=== PATIENT | male | born 1980 | race American Indian/Alaskan Native ===

== ENCOUNTER 2018-11-14 12:48 | Outpatient (CLI) | payer OTHER ==
[2018-11-14 13:20] LABS: Hematocrit 33.7 % (35.5-45.6); Mean Corpuscular HGB Conc 33 % (32-34); Mean Corpuscular Volume 86 fl (84-94); Platelet Count 154 K/mm3 (140-440); Red Blood Count 3.91 M/mm3 (3.65-5.03); Red Cell Distribution Width 16.3 % (13.2-15.2)
[2018-11-14 13:35] LABS: Bilirubin,Urine NEG (Negative); Blood,Urine SM (Negative); Color,Urine Yellow (Yellow); Urobilinogen,Urine < 2.0 mg/dL (<2.0)
[2018-11-14 13:52] LABS: Creatinine,Urine 216.1 mg/dL (0.1-20.0); Protein/Creatinine Ratio,Urine 0.58
[2018-11-14 14:24] LABS: Calcium 8.8 mg/dL (8.4-10.2)
== END 2018-11-14 12:49 | disposition home or self-care (01) ==
LOC: LAB 12:48
PROVIDERS: ATTEND Internal Medicine Nephrology
DX: I12.9 Hypertensive chronic kidney disease with stage 1 through stage 4 chronic kidney disease, or unspecified chronic kidney disease (principal); N18.1 Chronic kidney disease, stage 1; N25.81 Secondary hyperparathyroidism of renal origin
CPT/HCPCS: 36415; 80048; 81001; 82306; 82570; 83970; 84100; 84156; 85027

== ENCOUNTER 2019-03-09 15:17 | Outpatient (CLI) | payer OTHER ==
[2019-03-09 15:55] LABS: Hematocrit 34.4 % (35.5-45.6); Hemoglobin 11.6 gm/dl (11.8-15.2); Mean Corpuscular HGB Conc 34 % (32-34); Mean Corpuscular Volume 87 fl (84-94); Platelet Count 192 K/mm3 (140-440); Red Blood Count 3.93 M/mm3 (3.65-5.03); Red Cell Distribution Width 16.5 % (13.2-15.2)
[2019-03-09 15:55] LABS: Bilirubin,Urine NEG (Negative); Blood,Urine SM (Negative); Color,Urine Yellow (Yellow); Mucus,Urine FEW /HPF; Urobilinogen,Urine < 2.0 mg/dL (<2.0); WBC,Urine < 1.0 /HPF (0.0-6.0)
[2019-03-09 16:08] LABS: Calcium 9.1 mg/dL (8.4-10.2)
[2019-03-09 16:34] LABS: Creatinine,Urine 194.2 mg/dL (0.1-20.0); Protein/Creatinine Ratio,Urine 0.14
== END 2019-03-09 15:18 | disposition home or self-care (01) ==
LOC: LAB 15:17
PROVIDERS: ATTEND Internal Medicine Nephrology
DX: N25.81 Secondary hyperparathyroidism of renal origin (principal); N18.3 Chronic kidney disease, stage 3 (moderate)
CPT/HCPCS: 36415; 80048; 81001; 82570; 83970; 84100; 84156; 85027

== ENCOUNTER 2019-04-21 14:59 | Outpatient (CLI) | payer OTHER ==
[2019-04-21 15:25] LABS: Basophils % (Auto) 0.9 % (0.0-1.8); Eosinophils # (Auto) 0.1 K/mm3 (0.0-0.4); Hematocrit 34.1 % (35.5-45.6); Hemoglobin 11.3 gm/dl (11.8-15.2); Lymphocytes # (Auto) 1.1 K/mm3 (1.2-5.4); Mean Corpuscular HGB Conc 33 % (32-34); Mean Corpuscular Volume 90 fl (84-94); Monocytes # (Auto) 0.5 K/mm3 (0.0-0.8); Monocytes % (Auto) 12.6 % (0.0-7.3); Platelet Count 194 K/mm3 (140-440); Red Cell Distribution Width 16.6 % (13.2-15.2)
[2019-04-21 15:34] LABS: Creatinine,Urine 124.9 mg/dL (0.1-20.0); Protein/Creatinine Ratio,Urine 0.31
[2019-04-21 15:45] LABS: Calcium 9.1 mg/dL (8.4-10.2)
[2019-04-21 16:02] LABS: Bilirubin,Urine NEG (Negative); Blood,Urine SM (Negative); Color,Urine Yellow (Yellow); Urobilinogen,Urine < 2.0 mg/dL (<2.0)
== END 2019-04-21 15:00 | disposition home or self-care (01) ==
LOC: LAB 14:59
PROVIDERS: ATTEND Internal Medicine Nephrology
DX: N18.3 Chronic kidney disease, stage 3 (moderate) (principal); N25.81 Secondary hyperparathyroidism of renal origin
CPT/HCPCS: 36415; 80048; 81001; 82570; 83970; 84100; 84156; 85025

== ENCOUNTER 2019-07-18 16:31 | Outpatient (CLI) | payer OTHER ==
[2019-07-18 17:11] LABS: Bilirubin,Urine NEG (Negative); Blood,Urine MOD (Negative); Color,Urine Straw (Yellow); Protein,Urine <15 mg/dL mg/dL (Negative); Urobilinogen,Urine < 2.0 mg/dL (<2.0)
[2019-07-18 17:22] LABS: Creatinine,Urine 149.9 mg/dL (0.1-20.0); Protein/Creatinine Ratio,Urine 0.13
[2019-07-18 17:30] LABS: Hematocrit 33.7 % (35.5-45.6); Hemoglobin 11.2 gm/dl (11.8-15.2); Mean Corpuscular HGB Conc 33 % (32-34); Mean Corpuscular Volume 89 fl (84-94); Platelet Count 198 K/mm3 (140-440); Red Blood Count 3.77 M/mm3 (3.65-5.03); Red Cell Distribution Width 15.4 % (13.2-15.2)
[2019-07-18 17:33] LABS: Albumin 4.7 g/dL (3.9-5); Calcium 9.1 mg/dL (8.4-10.2)
== END 2019-07-18 16:32 | disposition home or self-care (01) ==
LOC: LAB 16:31
PROVIDERS: ATTEND Internal Medicine Nephrology
DX: N18.4 Chronic kidney disease, stage 4 (severe) (principal)
CPT/HCPCS: 36415; 80048; 81001; 82040; 82043; 82570; 83520; 84100; 84156; 85027; 86021; 86038; 86160

== ENCOUNTER 2019-08-17 12:57 | Outpatient (CLI) | payer OTHER ==
[2019-08-17 13:20] LABS: Hematocrit 34.4 % (35.5-45.6); Hemoglobin 11.3 gm/dl (11.8-15.2); Mean Corpuscular HGB Conc 33 % (32-34); Mean Corpuscular Volume 90 fl (84-94); Platelet Count 196 K/mm3 (140-440); Red Blood Count 3.83 M/mm3 (3.65-5.03); Red Cell Distribution Width 15.7 % (13.2-15.2)
[2019-08-17 13:40] LABS: Protein/Creatinine Ratio,Urine 0.43
[2019-08-17 13:48] LABS: Albumin 4.6 g/dL (3.9-5); Calcium 8.9 mg/dL (8.4-10.2)
[2019-08-17 13:51] LABS: Bacteria,Urine 4+ /HPF (Negative); Bilirubin,Urine NEG (Negative); Blood,Urine SM (Negative); Color,Urine Yellow (Yellow); Mucus,Urine 2+ /HPF; Sperm,Urine 3+ /HPF (NP); Urobilinogen,Urine < 2.0 mg/dL (<2.0)
[2019-08-22 12:54] LABS: ANA Screen, IFA Positive (Negative)
[2019-08-23 19:44] LABS: Myeloperoxidase Antibody <1.0 AI (<1.0)
== END 2019-08-17 12:58 | disposition home or self-care (01) ==
LOC: LAB 12:57
PROVIDERS: ATTEND Internal Medicine Nephrology
DX: N18.4 Chronic kidney disease, stage 4 (severe) (principal)
CPT/HCPCS: 36415; 80048; 81001; 82040; 82043; 82570; 83520; 84100; 84156; 85027; 86021; 86038; 86160; 87086

== ENCOUNTER 2019-10-09 16:30 | Outpatient (CLI) | payer OTHER ==
[2019-10-09 17:01] LABS: Basophils % (Auto) 0.4 % (0.0-1.8); Eosinophils # (Auto) 0.1 K/mm3 (0.0-0.4); Eosinophils % (Auto) 2.7 % (0.0-4.3); Hematocrit 33.2 % (35.5-45.6); Lymphocytes # (Auto) 1.3 K/mm3 (1.2-5.4); Lymphocytes % (Auto) 29.6 % (13.4-35.0); Mean Corpuscular HGB Conc 33 % (32-34); Mean Corpuscular Volume 90 fl (84-94); Monocytes # (Auto) 0.5 K/mm3 (0.0-0.8); Monocytes % (Auto) 12.6 % (0.0-7.3); Platelet Count 171 K/mm3 (140-440); Red Blood Count 3.71 M/mm3 (3.65-5.03); Red Cell Distribution Width 16.6 % (13.2-15.2)
[2019-10-09 17:24] LABS: Albumin 4.6 g/dL (3.9-5); Calcium 9.2 mg/dL (8.4-10.2)
[2019-10-09 17:34] LABS: Bilirubin,Urine NEG (Negative); Blood,Urine SM (Negative); Color,Urine Straw (Yellow); Urobilinogen,Urine < 2.0 mg/dL (<2.0)
[2019-10-09 17:43] LABS: Creatinine,Urine 119.2 mg/dL (0.1-20.0); Microalbumin/Creatinine Ratio 150.1 ug/mg
[2019-10-13 12:44] LABS: ANA Screen, IFA Positive (Negative)
== END 2019-10-09 16:31 | disposition home or self-care (01) ==
LOC: LAB 16:30
PROVIDERS: ATTEND Internal Medicine Nephrology
DX: I12.9 Hypertensive chronic kidney disease with stage 1 through stage 4 chronic kidney disease, or unspecified chronic kidney disease (principal); N18.4 Chronic kidney disease, stage 4 (severe); R80.1 Persistent proteinuria, unspecified; E66.9 Obesity, unspecified
CPT/HCPCS: 36415; 80048; 81001; 82040; 82043; 84100; 84156; 85025; 86038; 86225; 86334; 87086

== ENCOUNTER 2019-11-22 15:46 | Outpatient (CLI) | payer OTHER ==
[2019-11-22 16:51] LABS: Hematocrit 33.4 % (35.5-45.6); Hemoglobin 11.1 gm/dl (11.8-15.2); Mean Corpuscular HGB Conc 33 % (32-34); Mean Corpuscular Volume 88 fl (84-94); Platelet Count 187 K/mm3 (140-440); Red Cell Distribution Width 16.3 % (13.2-15.2)
[2019-11-22 17:00] LABS: Creatinine,Urine 59.2 mg/dL (0.1-20.0); Microalbumin/Creatinine Ratio 167.2 ug/mg; Protein/Creatinine Ratio,Urine 0.29
[2019-11-22 17:05] LABS: Bacteria,Urine 1+ /HPF (Negative); Bilirubin,Urine NEG (Negative); Blood,Urine MOD (Negative); Color,Urine Straw (Yellow); Protein,Urine <15 mg/dL mg/dL (Negative); Urobilinogen,Urine < 2.0 mg/dL (<2.0); WBC,Urine < 1.0 /HPF (0.0-6.0)
[2019-11-22 17:21] LABS: Albumin 4.5 g/dL (3.9-5); Calcium 9.1 mg/dL (8.4-10.2)
== END 2019-11-22 15:47 | disposition home or self-care (01) ==
LOC: LAB 15:46
PROVIDERS: ATTEND Internal Medicine Nephrology
DX: I12.9 Hypertensive chronic kidney disease with stage 1 through stage 4 chronic kidney disease, or unspecified chronic kidney disease (principal); N18.4 Chronic kidney disease, stage 4 (severe); R80.1 Persistent proteinuria, unspecified; E66.9 Obesity, unspecified
CPT/HCPCS: 36415; 80048; 81001; 82040; 82043; 82570; 84100; 84156; 85027

== ENCOUNTER 2020-01-31 11:26 | Outpatient (CLI) | payer OTHER ==
[2020-01-31 12:07] LABS: Hemoglobin 12.4 gm/dl (11.8-15.2)
[2020-01-31 12:32] LABS: Albumin 4.8 g/dL (3.9-5); Calcium 9.5 mg/dL (8.4-10.2); Uric Acid 8.8 mg/dL (3.5-7.6)
[2020-01-31 15:36] LABS: Creatinine 24 Hour,Urine 1.6 (0.8-2.8); Creatinine,Urine 59.6 mg/dL (0.1-20.0)
== END 2020-01-31 11:27 | disposition home or self-care (01) ==
LOC: LAB 11:26
PROVIDERS: ATTEND Internal Medicine Nephrology
DX: N18.4 Chronic kidney disease, stage 4 (severe) (principal)
CPT/HCPCS: 36415; 80048; 82040; 82565; 82570; 82575; 83970; 84100; 84156; 84550; 85014; 85018

== ENCOUNTER 2020-09-13 15:47 | Outpatient (CLI) | payer OTHER ==
[2020-09-14 16:43] LABS: Creatinine,Urine 55.2 mg/dL (0.1-20.0)
[2020-09-14 16:50] LABS: Creatinine 24 Hour,Urine 1.2 (0.8-2.8)
== END 2020-09-13 15:48 | disposition home or self-care (01) ==
LOC: LAB 15:47
PROVIDERS: ATTEND Internal Medicine Nephrology
DX: I12.9 Hypertensive chronic kidney disease with stage 1 through stage 4 chronic kidney disease, or unspecified chronic kidney disease (principal); N18.4 Chronic kidney disease, stage 4 (severe); R80.1 Persistent proteinuria, unspecified; E66.9 Obesity, unspecified; E87.2 Acidosis; E55.9 Vitamin D deficiency, unspecified
CPT/HCPCS: 36415; 82565; 82570; 84156

== ENCOUNTER 2020-09-16 09:36 | Outpatient (CLI) | payer OTHER ==
[2020-09-16 15:22] LABS: Hematocrit 32.9 % (35.5-45.6); Hemoglobin 10.9 gm/dl (11.8-15.2)
[2020-09-16 15:45] LABS: Albumin 4.3 g/dL (3.9-5); Calcium 9.2 mg/dL (8.4-10.2)
[2020-09-17 15:11] LABS: Creatinine,Urine 55.2 mg/dL (0.1-20.0)
[2020-09-17 15:13] LABS: Patient Weight,Urine 101.6 lbs
== END 2020-09-16 09:37 | disposition home or self-care (01) ==
LOC: LAB 09:36
PROVIDERS: ATTEND Internal Medicine Nephrology
DX: I12.9 Hypertensive chronic kidney disease with stage 1 through stage 4 chronic kidney disease, or unspecified chronic kidney disease (principal); N18.4 Chronic kidney disease, stage 4 (severe); E87.2 Acidosis
CPT/HCPCS: 36415; 80048; 82040; 82565; 82570; 82575; 82652; 84100; 85014; 85018

== ENCOUNTER 2020-12-04 15:22 | Outpatient (CLI) | payer OTHER ==
[2020-12-04 16:03] LABS: Hematocrit 30.7 % (35.5-45.6); Hemoglobin 10.3 gm/dl (11.8-15.2)
[2020-12-04 16:22] LABS: Creatinine,Urine 98.7 mg/dL (0.1-20.0); Protein/Creatinine Ratio,Urine 0.23
[2020-12-04 16:29] LABS: Bilirubin,Urine NEG (Negative); Blood,Urine SM (Negative); Color,Urine Yellow (Yellow); Urobilinogen,Urine < 2.0 mg/dL (<2.0); WBC,Urine < 1.0 /HPF (0.0-6.0)
[2020-12-04 16:32] LABS: Albumin 4.5 g/dL (3.9-5)
== END 2020-12-04 15:23 | disposition home or self-care (01) ==
LOC: LAB 15:22
PROVIDERS: ATTEND Internal Medicine Nephrology
DX: N18.4 Chronic kidney disease, stage 4 (severe) (principal); I12.9 Hypertensive chronic kidney disease with stage 1 through stage 4 chronic kidney disease, or unspecified chronic kidney disease; R80.1 Persistent proteinuria, unspecified; E66.9 Obesity, unspecified; E87.2 Acidosis; E55.9 Vitamin D deficiency, unspecified
CPT/HCPCS: 36415; 80048; 81001; 82040; 82570; 84100; 84156; 85014; 85018

== ENCOUNTER 2021-04-29 10:51 | Outpatient (CLI) | payer OTHER ==
[2021-04-29 11:34] LABS: Hematocrit 36.2 % (35.5-45.6); Hemoglobin 11.8 gm/dl (11.8-15.2)
[2021-04-29 11:54] LABS: Bilirubin,Urine NEG (Negative); Blood,Urine SM (Negative); Color,Urine Straw (Yellow); Urobilinogen,Urine < 2.0 mg/dL (<2.0)
[2021-04-29 11:56] LABS: Calcium 8.7 mg/dL (8.4-10.2)
[2021-04-29 15:34] LABS: Creatinine,Urine 153.3 mg/dL (0.1-20.0); Protein/Creatinine Ratio,Urine 0.2
== END 2021-04-29 10:52 | disposition home or self-care (01) ==
LOC: LAB 10:51
PROVIDERS: ATTEND Internal Medicine Nephrology
DX: I12.9 Hypertensive chronic kidney disease with stage 1 through stage 4 chronic kidney disease, or unspecified chronic kidney disease (principal); N18.4 Chronic kidney disease, stage 4 (severe); R80.1 Persistent proteinuria, unspecified; E87.2 Acidosis; E55.9 Vitamin D deficiency, unspecified; E66.9 Obesity, unspecified
CPT/HCPCS: 36415; 80048; 81001; 82040; 82570; 83970; 84100; 84156; 85014; 85018

== ENCOUNTER 2021-07-29 14:07 | Outpatient (CLI) | payer OTHER ==
[2021-07-29 14:45] LABS: Hematocrit 39.7 % (35.5-45.6); Hemoglobin 12.9 gm/dl (11.8-15.2)
[2021-07-29 17:37] LABS: Albumin 4.3 g/dL (3.9-5); Calcium 9.1 mg/dL (8.4-10.2)
[2021-07-29 17:54] LABS: Hepatitis C Virus Antibody Non-Reactive (NonReactive)
[2021-07-29 17:54] LABS: Creatinine 24 Hour,Urine 1.5 (0.8-2.8); Creatinine,Urine 60.4 mg/dL (0.1-20.0)
[2021-07-29 18:04] LABS: Hepatitis B Surface Antigen Nonreactive (Negative)
[2021-08-02 07:01] LABS: Albumin 4.1 g/dL (3.8-4.8); Gamma Globulin 1.1 g/dL (0.8-1.7)
[2021-08-02 11:17] LABS: Myeloperoxidase Antibody <1.0 AI (<1.0)
[2021-08-02 14:38] LABS: Vitamin D, 25-OH, D2 <4 ng/mL
== END 2021-07-29 14:08 | disposition home or self-care (01) ==
LOC: LAB 14:07
PROVIDERS: ATTEND Internal Medicine Nephrology
DX: N18.4 Chronic kidney disease, stage 4 (severe) (principal)
CPT/HCPCS: 36415; 80048; 80074; 82040; 82306; 82570; 83970; 84100; 84156; 84165; 85014; 85018; 86021

== ENCOUNTER 2021-08-11 15:17 | Emergency (ER) | payer OTHER ==
--- NOTE | 2021-08-11 16:38 | Emergency Department Report ---
ED General Adult HPI - General Chief complaint: High BP Stated complaint: BLOOD PRESSURE Time Seen by Provider: 08/11/21 15:54 Source: patient Mode of arrival: Ambulatory Limitations: No Limitations - History of Present Illness Initial comments: 41-year-old male with a past medical history of hypertension, and stage III kidney disease, not currently on dialysis presents to the ER today for elevated blood pressure. 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 Patient admits that he has been out of all of his blood pressure medications for 1 week. He states that he takes labetalol, clonidine, nifedipine, spironolactone and he thinks also losartan. He states that he is not currently having any symptoms. MD Complaint: Elevated BP/sent by black [employer] machine operator -: This afternoon - Related Data Previous Rx's Medication Instructions Recorded Last Taken Type Labetalol HCl [Labetalol 300mg TAB] 300 mg PO BID #60 tablet 08/11/21 Unknown Rx Losartan [Cozaar] 50 mg PO QDAY #30 tablet 08/11/21 Unknown Rx NIFEdipine [Nifedipine ER] 90 mg PO BID #60 tablet.er 08/11/21 Unknown Rx cloNIDine [Catapres] 0.1 mg PO QHS #30 tablet 08/11/21 Unknown Rx Allergies Allergy/AdvReac Type Severity Reaction Status Date / Time No Known Allergies Allergy Verified 08/11/21 17:44 ED Review of Systems ROS: Stated complaint: BLOOD PRESSURE Other details as noted in HPI Comment: All other systems reviewed and negative Constitutional: denies: chills, fever Eyes: denies: eye pain, eye discharge, vision change ENT: denies: ear pain, throat pain, dental pain, hearing loss, epistaxis, congestion Respiratory: denies: cough, shortness of breath, SOB with exertion, SOB at rest, wheezing Cardiovascular: denies: chest pain, palpitations Gastrointestinal: denies: abdominal pain, nausea, diarrhea, constipation, hematemesis, hematochezia Genitourinary: denies: urgency, dysuria, frequency, hematuria, discharge, testicular pain, testicular mass Skin: denies: rash, lesions, change in color, change in hair/nails, pruritus Neurological: denies: headache, weakness, numbness, paresthesias, confusion, abnormal gait, vertigo Psychiatric: denies: anxiety, depression, auditory hallucinations, visual hallucinations, homicidal thoughts, suicidal thoughts Hematological/Lymphatic: as per HPI. denies: easy bruising, swollen glands ED Past Medical Hx - Past Medical History Previous Medical History?: Yes Hx Hypertension: Yes Hx Renal Disease: Yes - Surgical History Past Surgical History?: No Additional Surgical History: denies - Social History Smoking Status: Current Every Day Smoker Substance Use Type: None - Medications Home Medications: Home Medications Medication Instructions Recorded Confirmed Last Taken Type Labetalol HCl [Labetalol 300mg TAB] 300 mg PO BID #60 tablet 08/11/21 Unknown Rx Losartan [Cozaar] 50 mg PO QDAY #30 tablet 08/11/21 Unknown Rx NIFEdipine [Nifedipine ER] 90 mg PO BID #60 tablet.er 08/11/21 Unknown Rx cloNIDine [Catapres] 0.1 mg PO QHS #30 tablet 08/11/21 Unknown Rx ED Physical Exam - General Limitations: No Limitations General appearance: alert, in no apparent distress - Head Head exam: Present: atraumatic, normocephalic, normal inspection - Eye Eye exam: Present: normal appearance, PERRL, EOMI Pupils: Present: normal accommodation - Neck Neck exam: Present: normal inspection, full ROM - Respiratory Respiratory exam: Present: normal lung sounds bilaterally. Absent: respiratory distress, wheezes, rales, rhonchi, stridor - Cardiovascular Cardiovascular Exam: Present: regular rate, normal rhythm, normal heart sounds - GI/Abdominal GI/Abdominal exam: Present: soft. Absent: distended, tenderness, guarding, rebound - Extremities Exam Extremities exam: Present: normal inspection, full ROM. Absent: pedal edema - Neurological Exam Neurological exam: Present: alert, oriented X3, CN II-XII intact, normal gait - Psychiatric Psychiatric exam: Present: normal affect, normal mood - Skin Skin exam: Present: intact ED Course Vital Signs 08/11/21 08/11/21 08/11/21 15:23 17:58 18:01 Temperature 98.7 F Pulse Rate 91 H 78 78 Respiratory 20 Rate Blood Pressure 216/148 224/155 224/155 Blood Pressure [Right] O2 Sat by Pulse 98 Oximetry 08/11/21 08/11/21 08/11/21 19:00 19:01 19:02 Temperature 98.2 F 98.2 F Pulse Rate 70 70 Respiratory 14 14 Rate Blood Pressure 207/134 Blood Pressure 207/134 [Right] O2 Sat by Pulse 99 99 99 Oximetry 08/11/21 08/11/21 19:11 20:30 Temperature 98.2 F Pulse Rate 89 Respiratory 14 Rate Blood Pressure 204/122 Blood Pressure 206/127 [Right] O2 Sat by Pulse 99 Oximetry ED Medical Decision Making - Lab Data Result diagrams: 08/11/21 17:05 - Medical Decision Making 41-year-old male with a past medical history of hypertension, and stage III kidney disease, not currently on dialysis presents to the ER today for elevated blood pressure. 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 Patient admits that he has been out of all of his blood pressure medications for 1 week. He states that he takes labetal ol, clonidine, nifedipine, spironolactone and he thinks also losartan. He states that he is not currently having any symptoms. 2057: Patient blood pressure trending down after clonidine, labetalol, and hydralazine. CMP reviewed, and shows that his creatinine is 3.9, but when you reviewed his past labs, his creatinine is at baseline. Patient reported being asymptomatic when he came to the ER. He states that after receiving the hydralazine he did get nauseous and vomitted and felt little short of breath. Patient reports that he vomited twice, the first time was reported, the second time I did observe him vomiting and was mildly diaphoretic but he denied shortness of breath, chest pain, headache, dizziness, vision changes, focal weakness or any additional symptoms. He states other than the vomiting he feels fine. He and his states that this vomiting started after he received the hydralazine and his admits that he does have vomiting episodes at times similar to what he is doing at home. He was observed ambulating to the bathroom and back and he denied any shortness of breath. Repeat physical exam showed that his chest was clear to auscultation. He was neurologically intact with a normal gait. He was not toxic appearing or ill-appearing. Discussed case with Dr. Kong shares states that the [facility] is already left for the day. He states that it could be related to the hydralazine since patient has no other symptoms, does not recommend any additional work up at this time and recommended reassessing patient after zofran. 2132: Patient states a feeling better after the Zofran. He again denies any symptoms. Currently resting comfortably on the recliner. Reassessment shows that patient is awake alert oriented x3. No focal neurological deficits on exam. Chest clear to auscultation. Abdomen soft and nontender. He is not toxic or ill-appearing. He is no longer diaphoretic. Patient will be discharged home with instructions to get this prescription filled and to start taking it daily. Worsening signs and symptoms discussed with patient and spous e, and informed them that if any of the signs and symptoms develop patient is to return immediately to the ER. They both expressed understanding of all instructions and agree with plan. Patient stable at time of discharge Critical care attestation.: If time is entered above; I have spent that time in minutes in the direct care of this critically ill patient, excluding procedure time. ED Disposition Clinical Impression: Uncontrolled hypertension, Non compliance w medication regimen, Chronic kidney disease (CKD) Disposition: 01 HOME / SELF CARE / HOMELESS Is pt being admited?: No Does the pt Need Aspirin: No Condition: Stable Instructions: Hypertension, Adult, [id number], Chronic Kidney Disease, Adult, [id number], Hypertension (ED) Additional Instructions: I recommend that you start taking all your blood pressure medications as prescribed and as soon as possible. It is very important that you remain compliant with your blood pressure medication and try avoid not taking your meds. I do recommend that you follow-up with the black top machine operator either tomorrow or Wednesday. Return to the ER if at any point you develop symptoms of chest pain, severe shortness of breath, speech changes, focal weakness, or any concerning symptoms. Prescriptions: cloNIDine [Catapres] 0.1 mg PO QHS #30 tablet Losartan [Cozaar] 50 mg PO QDAY #30 tablet Labetalol HCl [Labetalol 300mg TAB] 300 mg PO BID #60 tablet NIFEdipine [Nifedipine ER] 90 mg PO BID #60 tablet.er Referrals: NINO VILLASENOR MD [Primary Care Provider] - 3-5 Days Forms: Work/School Release Form(ED) Time of Disposition: 20:45
[2021-08-11] MEDS ORDERED: cloNIDine 0.1 MG TAB PO ONE (17:31)
[2021-08-11 17:52] LABS: Albumin 3.8 g/dL (3.9-5); Calcium 8.9 mg/dL (8.4-10.2)
[2021-08-11] MEDS ORDERED: hydrALAZINE 20 MG/1 ML INJ IV ONE (18:55)
[2021-08-11] MEDS ORDERED: ONDANSETRON 4 MG ODT TAB PO ONE (21:05)
[2021-08-11 21:44] VITALS: BP 191/112
== END 2021-08-11 21:44 | disposition home or self-care (01) ==
LOC: ED 15:17
DX: I12.9 Hypertensive chronic kidney disease with stage 1 through stage 4 chronic kidney disease, or unspecified chronic kidney disease (principal); N18.30 Chronic kidney disease, stage 3 unspecified; Z91.14 Patient's other noncompliance with medication regimen; F17.200 Nicotine dependence, unspecified, uncomplicated
CPT/HCPCS: 36415; 80053; 96374; 99283; J0360; Q0162

== ENCOUNTER 2022-06-12 13:38 | Outpatient (CLI) | payer OTHER ==
[2022-06-12 14:27] LABS: Mucus,Urine FEW /HPF; RBC,Urine < 1.0 /HPF (0.0-6.0)
[2022-06-12 14:34] LABS: Albumin 4.4 g/dL (3.9-5); Calcium 8.7 mg/dL (8.4-10.2)
[2022-06-12 15:35] LABS: Color,Urine Yellow (Yellow)
[2022-06-12 17:11] LABS: Creatinine,Urine 135.1 mg/dL (0.1-20.0)
[2022-06-12 17:28] LABS: Protein/Creatinine Ratio,Urine 1.69
== END 2022-06-12 13:39 | disposition home or self-care (01) ==
LOC: LAB 13:38
PROVIDERS: ATTEND Internal Medicine Nephrology
DX: I12.9 Hypertensive chronic kidney disease with stage 1 through stage 4 chronic kidney disease, or unspecified chronic kidney disease (principal); N18.4 Chronic kidney disease, stage 4 (severe); R80.1 Persistent proteinuria, unspecified; E66.9 Obesity, unspecified; E87.2 Acidosis; E55.9 Vitamin D deficiency, unspecified
CPT/HCPCS: 36415; 80048; 81001; 82040; 82570; 84100; 84156